=== PATIENT | male | born 1970 | race American Indian/Alaskan Native ===

== ENCOUNTER 2018-04-28 20:18 | Emergency (ER) | payer OTHER ==
[2018-04-28 20:30] VITALS: BP 150/80
[2018-04-29] MEDS ORDERED: TORADOL IM ONE (02:20)
--- NOTE | 2018-04-29 02:46 | Emergency Department Report ---
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 requires repeat heavy lifting daily pain described as 510 right low back pain radiating to right lower extremity there is no numbness no tingling or weakness no decrease or loss in bowel or bladder function patient denies dysuria no hematuria no flow problems MD Complaint: back pain Onset/Timin -: hour(s) Similar Symptoms Previously: Yes Place: home Radiation: right leg Severity: moderate Severity scale (0 -10): 4 Quality: aching Consistency: intermittent Worsens With: movement Context: turning/twisting Associated Symptoms: denies: weakness, numbness, difficulty urinating, incontinence, fever/chills, rash - Related Data Previous Rx's Medication Instructions Recorded Last Taken Type Cyclobenzaprine [Flexeril] 10 mg PO BID PRN #20 tablet 04/29/18 Unknown Rx Menthol/Camphor [[place] 1 applicatio TP TID PRN #1 tube 04/29/18 Unknown Rx Ointment] Naproxen [Naprosyn TAB] 500 mg PO BID PRN #30 tablet 04/29/18 Unknown Rx Allergies Allergy/AdvReac Type Severity Reaction Status Date / Time shrimp Allergy Shortness Verified 04/28/18 20:39 of Breath ED Review of Systems ROS: Stated complaint: BACK PAIN Other details as noted in HPI Constitutional: denies: chills, fever Eyes: denies: eye pain, eye discharge, vision change ENT: denies: ear pain, throat pain Respiratory: denies: cough, shortness of breath, wheezing Cardiovascular: denies: chest pain, palpitations Endocrine: no symptoms reported Gastrointestinal: denies: abdominal pain, nausea, diarrhea Genitourinary: denies: urgency, dysuria Musculoskeletal: back pain, arthralgia, myalgia Skin: denies: rash, lesions Neurological: denies: headache, weakness, numbness, paresthesias, confusion, abnormal gait, vertigo Psychiatric: denies: anxiety, depression Hematological/Lymphatic: denies: easy bleeding, easy bruising ED Past Medical Hx - Past Medical History Previous Medical History?: No - Surgical History Past Surgical History?: No - Social History Smoking Status: Never Smoker Substance Use Type: None - Medications Home Medications: Home Medications Medication Instructions Recorded Confirmed Last Taken Type Cyclobenzaprine [Flexeril] 10 mg PO BID PRN #20 tablet 04/29/18 Unknown Rx Menthol/Camphor [[place] 1 applicatio TP TID PRN #1 tube 04/29/18 Unknown Rx Ointment] Naproxen [Naprosyn TAB] 500 mg PO BID PRN #30 tablet 04/29/18 Unknown Rx ED Physical Exam - General Limitations: No Limitations General appearance: alert, in no apparent distress - Head Head exam: Present: atraumatic, normocephalic - Eye Eye exam: Present: normal appearance - ENT ENT exam: Present: mucous membranes moist - Neck Neck exam: Present: normal inspection - Respiratory Respiratory exam: Present: normal lung sounds bilaterally. Absent: respiratory distress, wheezes, stridor, chest wall tenderness - Cardiovascular Cardiovascular Exam: Present: regular rate, normal rhythm, normal heart sounds. Absent: systolic murmur, diastolic murmur, rubs, gallop - GI/Abdominal GI/Abdominal exam: Present: soft, normal bowel sounds. Absent: mass, hernia - Rectal Rectal exam: Present: deferred - Extremities Exam Extremities exam: Present: normal inspection, full ROM - Back Exam Back exam: Present: full ROM, tenderness, muscle spasm, paraspinal tenderness. Absent: CVA tenderness (R), CVA tenderness (L), vertebral tenderness, rash noted - Expanded Back Exam Expanded Back exam: Absent: saddle anesthesia Back exam: Positive Straight Leg Raise: Right, Negative Straight Leg Raising: Left - Neurological Exam Neurological exam: Present: alert, oriented X3, CN II-XII intact, normal gait - Expanded Neurological Exam Expanded Neurological exam: Present: innattentive Patient oriented to: Present: person, place, time Speech: Present: fluid speech, expressive aphasia, anomia Cerebellar function: Finger to Nose: Normal, Heel to Terrell: Normal, Romberg: Normal Upper motor neuron: Geovani Neglect: Normal, Pronator Drift: Normal, Babinski Sign : Normal, Sensory Extinction: Normal Sensory exam: Upper Extremity Light Touch: Normal, Upper Extremity Pin Prick: Normal, Upper Extremity Temperature: Normal, UE 2 Point Discrimination: Normal, Lower Extremity Light Touch: Normal, Lower Extremity Pin Prick: Normal, Lower Extremity Temperature: Normal, LE 2 Point Discrimination: Normal Motor strength exam: RUE: 5, LUE: 5, RLE: 5, LLE: 5 DTR: bicep (R): 2+, bicep (L): 2+, knee (R): 2+, knee (L): 2+ Best Eye Response (Jose): (4) open spontaneously Best Motor Response (Jose): (6) obeys commands Best Verbal Response ([place]): (5) oriented Jose Total: 15 - Psychiatric Psychiatric exam: Present: normal affect, normal mood - Skin Skin exam: Present: warm, dry, intact, normal color. Absent: rash ED Course Vital Signs 04/28/18 04/28/18 20:29 20:37 Temperature 99.0 F 99.0 F Pulse Rate 84 83 Respiratory 18 17 Rate Blood Pressure 150/80 150/80 O2 Sat by Pulse 98 99 Oximetry ED Medical Decision Making - Medical Decision Making This is low back strain and acute on chronic pain improved with Toradol IM patient no 3 and a steady gait pain reduced to 2/10 plan we'll DC to home in stable condition and says muscle relaxant when necessary for pain moist heat therapy patient will follow with PCP in 2-3 days . Verbalized agreement and understanding with same patient DC'd in stable condition at this time. Critical care attestation.: If time is entered above; I have spent that time in minutes in the direct care of this critically ill patient, excluding procedure time. ED Disposition Clinical Impression: Low back strain Qualifiers: Encounter type: initial encounter Qualified Code(s): S39.012A - Strain of muscle, fascia and tendon of lower back, initial encounter Disposition: DC-01 TO HOME OR SELFCARE Is pt being admited?: No Does the pt Need Aspirin: No Condition: Good Instructions: Low Back Strain (ED), Core Strengthening Exercises (GEN) Prescriptions: Cyclobenzaprine [Flexeril] 10 mg PO BID PRN #20 tablet PRN Reason: Muscle Spasm Menthol/Camphor [[place] Ointment] 1 applicatio TP TID PRN #1 tube PRN Reason: pain Naproxen [Naprosyn TAB] 500 mg PO BID PRN #30 tablet PRN Reason: Pain , Severe (7-10) Referrals: [facility] [Outside] - 3-5 Days Forms: Work/School Release Form(ED) Time of Disposition: 02:57
[2018-04-29 06:58] LABS: Bilirubin,Urine NEG (Negative); Blood,Urine NEG (Negative); Color,Urine Yellow (Yellow); Hyaline Casts,Urine 1 /LPF; Mucus,Urine FEW /HPF; Protein,Urine <15 mg/dL mg/dL (Negative)
== END 2018-04-29 03:04 | disposition home or self-care (01) ==
LOC: ED 22:37
DX: S39.012A Strain of muscle, fascia and tendon of lower back, initial encounter (principal); Z91.013 Allergy to seafood; X50.0XXA Overexertion from strenuous movement or load, initial encounter; Y93.89 Activity, other specified; Y92.89 Other specified places as the place of occurrence of the external cause; Y99.8 Other external cause status
CPT/HCPCS: 81001; 96372; 99283; J1885